=== PATIENT | female | born 1990 | race Two or more races ===

== ENCOUNTER 2019-01-28 15:58 | Emergency (ER) | payer OTHER ==
[~2019-01-28] VITALS: Ht 172.7 cm; Wt 87.7 kg
[2019-01-28 16:14] VITALS: BP 130/94
[2019-01-28] MEDS ORDERED: PRED20TA PO (17:16)
[2019-01-28] MEDS ORDERED: FAMO-128 PO (17:17)
== END 2019-01-28 18:14 | disposition home or self-care (01) ==
LOC: ER 15:58
DX: L23.7 Allergic contact dermatitis due to plants, except food (principal); Z79.899 Other long term (current) drug therapy
CPT/HCPCS: 99283